=== PATIENT | male | born 1975 | race Two or more races ===

== ENCOUNTER 2023-03-21 07:25 | Day surgery (SDC) | payer BC, OTHER ==
[2023-03-14 18:05] VITALS: BMI 32.3
[~2023-03-21 07:25] MED LIST: ACETAMINOPHEN 500 MG TABLET (FP) PO PRN
[2023-03-21] MEDS ORDERED: LIDOCAINE 1% P/F 10 MG/ML VIAL INF ONE ×4 (07:30)
[2023-03-21] MEDS ORDERED: FENTANYL CITRATE/PF 50 MCG/ML VIAL ONE (07:34)
[2023-03-21] MEDS ORDERED: MIDAZOLAM HCL 2 MG/2 ML SINGLE DOSE VIAL ONE (07:34)
[2023-03-21] MEDS ORDERED: PROPOFOL 40 ML ONE (07:49)
[2023-03-21] MEDS ORDERED: ceFAZolin SODIUM 1 GM VIAL IVPB ONE (08:15)
[2023-03-21] MEDS ORDERED: LIDOCAINE HCL/PF 2% SDV 5ML VIAL INF ONE ×3 (08:16)
[2023-03-21] MEDS ORDERED: ceFAZolin SODIUM 1 GM VIAL ONE (08:18)
[2023-03-21] MEDS ORDERED: LIDOCAINE HCL/PF 2% SDV 5ML VIAL ONE ×2 (08:19→08:35)
[2023-03-21] MEDS ORDERED: DEXAMETHASONE SOD PHOSPHATE 4 MG/1 ML VIAL ONE (08:25)
[2023-03-21] MEDS ORDERED: ONDANSETRON 4 MG/2 ML VIAL ONE (08:25)
[2023-03-21 11:40] VITALS: RESP 20
[2023-03-21 11:44] VITALS: BP 115/74; PULSE 60; TEMP 97.8
[2023-03-21] MEDS ORDERED: ACETAMINOPHEN 500 MG TABLET (FP) PO PRN (15:21)
== END 2023-03-21 11:17 | disposition home or self-care (01) ==
LOC: JASU-SURG 07:25
PROVIDERS: ATTEND Pain Medicine Pain Medicine
PROC: 00HU3MZ Insertion of Neurostimulator Lead into Spinal Canal, Percutaneous Approach (ICD-10-PCS; principal; 2023-03-21 08:00)
DX: M96.1 Postlaminectomy syndrome, not elsewhere classified (principal)
CPT/HCPCS: 63650; C1897; 76000-TC-FY; C1889